=== PATIENT | male | born 1975 | race African-American/Black ===

== ENCOUNTER → 2017-10-14 | Outpatient (CLI) | payer OTHER ==
--- NOTE | 2017-10-14 12:17 | RADIOLOGY REPORT (SQ) ---
EXAM DESCRIPTION: MRI ABDOMEN COMBO COMPLETED DATE/TIME: 10/14/2017 11:19 am REASON FOR STUDY: LIPOMA ON LUMBAR AREA (E88.2) COMPARISON: None. TECHNIQUE: Patient has a palpable abnormality along the upper lumbar region. The area of palpable a bnormality was marked with vitamin E capsules, and MRI and of this area to include axial T1 pre and p ostcontrast, axial fat-sat T1 precontrast, axial fat-sat T1 postcontrast images, sagittal and coronal T1 precontrast, fat-sat T1 images and STIR images through the mass. CONTRAST TYPE AND DOSE: 15 mL IV ProHance gadolinium RENAL FUNCTION: None required. The patient is less than 50 years old. LIMITATIONS: None. FINDINGS: At about the level of the L1 and L2 spinous processes, there is a new well-circumscribed f at signal mass in the subcutaneous fat, measuring 7.6 cm transverse by 2 cm AP x 5 cm craniocaudad. This has homogeneous fat saturation on the precontrast T1 axial images, no worrisome contrast enhance ment or enhancing septations. This likely represents a benign lipoma. The paraspinal soft tissues including muscles, visualized retroperitoneum are unremarkable. There is mild bilateral facet arthropathy at L1-2 and L2-3, without disc bulge or is central or foraminal enc roachment. IMPRESSION: Benign appearing lipoma in the posterior superficial back soft tissues along the subcuta neous fat. COMMENT: Clinical follow-up recommended. If this rapidly grows or changes clinically, consider exci sional biopsy. TECHNICAL DOCUMENTATION: JOB ID: [id number] [employer]- All Rights Reserved Reading location - IP/workstation name: [email or web address]
== END ==
LOC: RAD 09:44
PROVIDERS: ATTEND Family Medicine
DX: D17.39 Benign lipomatous neoplasm of skin and subcutaneous tissue of other sites (principal)
CPT/HCPCS: 74183; A9576